=== PATIENT | male | born 2000 | race African-American/Black ===

== ENCOUNTER 2018-11-02 00:34 | Emergency (ER) | payer OTHER ==
[2018-11-02] MEDS ORDERED: Lidocaine 2% EPI 1:200000 MPF*10-20 ML VIAL ONE (02:08)
[2018-11-02] MEDS ORDERED: Tetan/Diph/Pertus SYR(Tdap)* 0.5 ML SYR(BOOSTRIX) use SYR IM ONE (02:10)
--- NOTE | 2018-11-02 02:14 | ED ---
Laceration/Wound HPI - HPI Summary HPI Summary: 18 year old male presents with facial laceration today. He states he got caught by a ceramic knife. he also got peppered sprayed. Denies any other injury. Tetanus is not up-to-date. Has no medical conditions. The area is not actively bleeding. Denies any foreign body in the wound. - History of Current Complaint Stated Complaint: FACAIL LAC Time Seen by Provider: 11/02/18 02:05 Pain Intensity: 4 - Allergy/Home Medications Allergies/Adverse Reactions: Allergies Allergy/AdvReac Type Severity Reaction Status Date / Time No Known Allergies Allergy Verified 11/02/18 00:45 Home Medications: Home Medications NK [No Home Medications Reported] 11/02/18 [History Confirmed 11/02/18] PMH/Surg Hx/FS Hx/Imm Hx Endocrine/Hematology History: Denies: Hx Anticoagulant Therapy Cardiovascular History: Denies: Hx Myocardial Infarction Infectious Disease History: No Infectious Disease History: Denies: Traveled Outside the [place] in Last 30 Days - Family History Known Family History: Positive: Non-Contributory - Social History Substance Use Type: Reports: None Review of Systems Negative: Fever Negative: Chest Pain Negative: Shortness Of Breath Positive: Other - facial laceration All Other Systems Reviewed And Are Negative: Yes Physical Exam Triage Information Reviewed: Yes Vital Signs On Initial Exam: Initial Vitals Temp Pulse Resp BP Pulse Ox 97.8 F 64 16 133/88 100 11/02/18 00:42 11/02/18 00:42 11/02/18 00:42 11/02/18 00:42 11/02/18 00:42 Vital Signs Reviewed: Yes Appearance: Positive: Well-Appearing Skin: Positive: Warm, Dry, Other - 8cm by 1/2cm laceration to left cheek Head/Face: Positive: Normal Head/Face Inspection Eyes: Positive: Normal, EOMI, YANETH, Conjunctiva Clear ENT: Positive: Normal ENT inspection, Pharynx normal, TMs normal Respiratory/Lung Sounds: Positive: Clear to Auscultation, Breath Sounds Present Cardiovascular: Positive: Normal, RRR Musculoskeletal: Positive: Normal Neurological: Positive: Normal Psychiatric: Positive: Normal Procedures - Laceration/Wound Repair 1 Location: face Description: Linear Anesthesia: Local, 1.0%, Epi Length, Depth and Shape: 8cm by 1/2cm Irrigated w/ Saline (ccs): 500 Laceration/Wound Explored: no foreign body removed Closure: Single Layer Suture Type: Prolene Number of Sutures: 13 Diagnostics - Vital Signs Vital Signs Temp Pulse Resp BP Pulse Ox 11/02/18 00:42 97.8 F 64 16 133/88 100 - Laboratory Lab Statement: Any lab studies that have been ordered have been reviewed, and results considered in the medical decision making process. Laceration Repair Course/Dx - Course Course Of Treatment: 18 year old male presents with facial laceration today. He states he got caught by a ceramic knife. he also got peppered sprayed. Denies any other injury. Tetanus is not up-to-date. Has no medical conditions. The area is not actively bleeding. Denies any foreign body in the wound. On exam has 8cm by 1/2cm right sided facial laceration. Cleaned wound and placed 13 sutures. Told to keep the area clean and dry. gave tetanus. Patient understands agrees plan. - Differential Dx Differental Diagnoses: Abrasion, Avulsion, Laceration - Clinical Impression Provider Diagnoses: Facial laceration Discharge - Sign-Out/Discharge Documenting (check all that apply): Patient Departure Patient Received Moderate/Deep Sedation with Procedure: No - Discharge Plan Condition: Good Disposition: HOME Patient Education Materials: Care For Your Stitches (ED) Referrals: Bea BROWN,René Good [Primary Care Provider] - Additional Instructions: Keep area clean and dry for 24 hours Take Tylenol or ibuprofen for pain every 6 hours Return to ED or primary for suture removal in 5 days Return to ED if develop signs of infection such as fever, spreading redness, or pus formation - Billing Disposition and Condition Condition: GOOD Disposition: Home
== END 2018-11-02 03:09 | disposition home or self-care (01) ==
LOC: ED 00:34
DX: S01.81XA Laceration without foreign body of other part of head, initial encounter (principal); T59.3X3A Toxic effect of lacrimogenic gas, assault, initial encounter; W26.0XXA Contact with knife, initial encounter; Y92.9 Unspecified place or not applicable
CPT/HCPCS: 12015; 90471; 90715; 99282